=== PATIENT | male | born 1950 | race Caucasian/White ===

== ENCOUNTER 2021-01-17 20:10 | Emergency (ER) | payer MEDICARE, SELFPAY ==
--- NOTE | ~2021-01-17 | XR_ITS ---
EXAMINATION: XR chest 1V portable DATE: 01/17/2021 20:39 INDICATION: Left-sided anterior chest pain with shortness of breath TECHNIQUE: frontal view of the chest was obtained. COMPARISON: None FINDINGS: Reticular pattern at the bilateral lung. No pleural effusion or pneumothorax. The cardiomediastinal s ilhouette is normal. 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 IMPRESSION: 1. Increased reticular pattern at the bilateral lung bases which could represent mild pulmonary edema , atelectasis or less likely pneumonia. Reviewed, dictated and finalized at location A. IMPRESSION: 1. Increased reticular pattern at the bilateral lung bases which could represen t mild pulmonary edema, atelectasis or less likely pneumonia.
--- NOTE | 2021-01-17 20:18 | ECG_ITS ---
Measurements Intervals [place] Rate: 109 P: 54 MO: 157 QRS: -33 QRSD: 147 T: 104 QT: 364 QTc: 491 Interpretive Statements SINUS TACHYCARDIA VENTRICULAR PREMATURE COMPLEX POSSIBLE LEFT ATRIAL ENLARGEMENT LEFT AXIS DEVIATION LEFT BUNDLE BRANCH BLOCK ABNORMAL ECG Electronically Signed On 01-17-2021 21:19:19 CDT by Vito Ivory D.O.
[2021-01-17] MEDS: NITROGLYCERIN SL 0.4 MG TABLET SUBLINGUAL (20:20)
[2021-01-17 20:26] VITALS: BP 130/90; PULSE 94; RESP 18; TEMP 36.6; O2SAT 98
--- NOTE | 2021-01-17 20:45 | ED.GENADULT ---
HPI - General Adult General Chief complaint: Chest Pain Stated complaint: chest pain, trouble breathing Source: patient Mode of arrival: ambulatory Limitations: no limitations History of Present Illness HPI narrative: Matthieu is a 71M with a PMH of CAD s/p multiple stents and DMII that presented to the ED with chest pain. It started a few days ago. It is a 8/10 pressure in his left chest that shoots down his left arm. It is associated with SOB and lightheadedness but no syncope. He has had a little nausea but no vomiting. It is worse with eating. It is not affected by activity. No fevers, chills or cough. Related Data Home Medications Medication Instructions Recorded Confirmed aspirin [Adult Low Dose Aspirin] 81 mg PO DAILY 01/17/21 01/17/21 Allergies Allergy/AdvReac Type Severity Reaction Status Date / Time gabapentin AdvReac Hives Verified 01/17/21 23:20 Review of Systems Constitutional: Constitutional: Reports no additional constitutional complaints Eyes: Eyes: Reports no additional eye complaints ENT: Reports system reviewed and no additional complaints, except as documented Cardiovascular: Cardiovascular: Reports as per HPI Respiratory: Respiratory: Reports as per HPI Gastrointestinal: Gastrointestinal: Reports as per HPI Genitourinary: Genitourinary: Reports no additional male genitourinary complaints Musculoskeletal: Musculoskeletal: Reports no additional musculoskeletal complaints Integumentary/Breasts: Skin/Breast: Reports system reviewed and no additional complaints, except as docu Neurologic: Reports system reviewed and no additional complaints, except as documented Psychiatric: Psychiatric: Reports no additional psychiatric complaints Endocrine: Endocrine: Reports no additional endocrine complaints Hematologic/Lymphatic: Hematologic/Lymphatic: Reports no additional hematologic/lymphatic complaints Allergic/Immunologic: Allergic/Immunologic: Reports no additional allergic/immunologic complaints [facility] Social History Social History Gender identity (if verbalized by the patient): Male Exam Const: General: alert; No confusion Orientation/consciousness: patient oriented x3 Limitations: altered mental status Other: Mild distress. HENMT: Head: normal to inspection Other: atraumatic Eyes: Conjunctivae: conjunctivae normal Pupils: Equal, round and reactive pupils present Neck: Neck: normal visual inspection Chest: Chest palpation & inspection: normal inspection of the chest Resp: Effort & Inspection: normal respiratory effort, not labored, no retractions and not tachypneic Auscultation: clear to auscultation bilaterally Cardio: Rate: regular rate Rhythm: regular rhythm Heart sounds: no murmurs GI: Inspection: non-distended GI Palp: Yes Soft to palpation, No Tenderness to palpation present (GI), No Guarding due to palpation present (GI) and No Rigid due to palpation : General: Yes no CVA tenderness Skin: General skin exam: normal color Rashes: no rashes Neuro: General: patient oriented x3, moves all extremities, no meningeal signs, no focal motor deficits and CN's II-XI intact bilaterally Extrem: General: normal to inspection Psych: Appearance: grossly normal Mental Status: mental status grossly normal Course Course Emergency Course: Ordered labs, CXR, EKG, aspirin and nitro. Nitro brought the pain from an 8 to a 5 or 6. He was given multiple doses of nitro and later a zofran as he vomited. \ Later his labs came back with a troponin of 5434. A heparin drip and nitro drip were started. [phone]. The hospitalist then said he would talk to cardiology. They later called back at 2233 and said that this is a new LBBB and to treat like a stemi and go to the nearest cathode maker. Next [place] was contacted at [phone] who accepted the patient as a STEMI. He was later flown out for PCI A
[2021-01-17 20:57] LABS: Basophils Absolute Auto 0.03 K/mm3 (0.00-0.10); Basophils Percent Auto 0.3 % (0.0-1.0); Eosinophils Absolute Auto 0.08 K/mm3 (0.02-0.50); Eosinophils Percent Auto 0.8 % (1.0-6.0); Hematocrit 47.7 % (37.0-46.0); Hemoglobin 15.9 g/dL (12.4-15.3); Immature Granulocyte Absolute 0.04 K/mm3 (0.00-0.00); Immature Granulocyte Percent A 0.4 % (0.0-0.0); Lymphocytes Absolute Auto 1.69 K/mm3 (1.10-4.50); Lymphocytes Percent Auto 17.8 % (18.0-42.0); Mean Corpuscular HGB Conc 33.3 g/dL (32.0-36.0); Mean Corpuscular Hemoglobin 29.3 pg (27.0-31.0); Mean Platelet Volume 10.4 fl (8.7-11.0); Monocytes Absolute Auto 0.66 K/mm3 (0.10-0.90); Neutrophils Percent Auto 73.7 % (50.0-70.0); Platelet Count Result 278 K/mm3 (150-420); Red Blood Count 5.42 M/mm3 (4.70-6.10); Red Cell Distribution Width 12.8 % (11.6-14.4); White Blood Count 9.5 K/mm3 (4.8-10.8)
[2021-01-17] MEDS: ASPIRIN 81 MG CHEWABLE TABLET 324 MG PO (21:04)
[2021-01-17 21:12] LABS: INR 1.1; Partial Thromboplastin Time 29.2 SEC (23.90-30.70); Prothrombin Time 11.4 Seconds (9.50-12.10)
[2021-01-17] MEDS: MORPHINE SULFATE (*CRX) 4 MG/ML INJ IV PUSH (21:16)
[2021-01-17 21:19] LABS: Alanine Aminotransferase 28 U/L (16-63); Albumin Level 3.5 g/dL (3.4-5.0); Alkaline Phosphatase 111 U/L (46-116); Anion Gap 17 mmol/L (8-16); Aspartate Amino Transferase 47 U/L (15-37); Bilirubin,Total 1.3 mg/dL (0.00-1.00); Blood Urea Nitrogen 25 mg/dL (7-18); Calcium 9.4 mg/dL (8.5-10.1); Carbon Dioxide 22 mmol/L (21-32); Chloride 99 mmol/L (98-108); Estimated CRCL calculation 39 ml/min; Estimated Glomerular Filt Rate 41; Glucose 374 mg/dL (70-99); Lipase 46 U/L (73-393); NT Pro B Type Natriuretic Pept 6243 pg/mL (0-125); Osmolality Calculated 305 mOsm/kg (285-295); Potassium 4.1 mmol/L (3.5-5.1); Sodium 138 mmol/L (136-145); Total Protein 7.4 g/dL (6.4-8.2)
[2021-01-17 21:57] VITALS: BP 124/88; PULSE 102
[2021-01-17] MEDS: NITROGLYCERIN/D5W 200 MCG/ML 50 MG/250 ML BTL IV CONT (21:57)
[2021-01-17] MEDS: HEPARIN SODIUM 5,000 UNITS/ML VIAL 4000 UNITS IV PUSH (21:57)
[2021-01-17] MEDS: HEPARIN SOD/D5W 100 UNITS/ML 25,000 UNITS/250 ML BAG 9 UNITS IV CONT (21:58)
[2021-01-17] MEDS: ONDANSETRON INJ 4 MG/2 ML VIAL IV PUSH (22:03)
[2021-01-17] MEDS: LORazepam INJ (*CRX) 2 MG/ML VIAL 1 MG IV PUSH (22:03)
[2021-01-17 22:09] LABS: SARS-CoV-2 Ag Negative (Negative)
--- NOTE | 2021-01-17 23:12 | PC.NURSE ---
2234 MD at [facility] states this is a STEMI compared to EKG there, request to go where can do emergency PCI. 2235 Patient req [facility] 2236 CALLED STAT heart
[2021-01-17 23:31] VITALS: BP 122/82; PULSE 92; RESP 20; TEMP 37; O2SAT 98
== END 2021-01-17 23:08 | disposition short-term general hospital (02) ==
LOC: CHSED 20:14
PROVIDERS: Emergency Provider Family Medicine
DX: I24.9 Acute ischemic heart disease, unspecified (principal); R06.02 Shortness of breath; Z20.822 Contact with and (suspected) exposure to COVID-19
CPT/HCPCS: 36415; 71045; 80053; 83690; 83880; 84484; 85025; 85610; 85730; 87426; 93005; 96365; 96366; 96368; 96375; 99285; A9270; C9803; J1644; J2060; J2270; J2405

== ENCOUNTER 2021-01-22 21:57 | Observation (INO) | payer MEDICARE, OTHER, SELFPAY ==
--- NOTE | ~2021-01-22 | CT_ITS ---
EXAMINATION: CTA chest PE protocol EXAM DATE: 01/23/2021 00:01 INDICATION: Shortness of breath, elevated d-dimer. Chest pain. TECHNIQUE: Spiral CTA of the chest (pulmonary arteries) was performed with 100 cc Omnipaque 350 intr avenous contrast injection. Images were acquired during the pulmonary arterial phase. Coronal maxi mum intensity projection 3D-reconstructions were created by the technologist on dedicated workstation . Axial, coronal and sagittal reformatted images were reviewed. The dose-length product (DLP) for t his examination was 593.04 mGy-cm. The exposure was tailored according to patient size (auto mA exp osure control), and iterative reconstruction (ASIR) was used as additional dose reduction technique. There is no prior study for comparison. FINDINGS: Pulmonary arteries are well opacified and without intraluminal filling defects. No thora cic aortic dissection. There are small to moderate bilateral pleural effusions. There is adjacent sub segmental atelectasis. There are small to moderate amount of scattered groundglass opacities, likely acute edema or infection. Please clinically correlate. Tracheobronchial tree is patent. There is no mediastinal, hilar or axillary lymphadenopathy. There is no pneumothorax. Heart normal in size. There are dense coronary arteries, could be severe coronary arterial sclerosis and/or coronary vick ry stent(s), which are difficult to distinguish due to cardiac motion on this non-gated exam. Correla te with cardiac history and consider cardiology consult if not recently evaluated. Upper abdomen is unremarkable. There is thoracic spondylosis without osteoblastic or osteolytic lesions identified. IMPRESSION: 1. Small to moderate amount of bilateral edema or infection. 2. Small to moderate bilateral pleural effusions, adjacent subsegmental atelectasis. 3. No pulmonary emboli. Reviewed, dictated and finalized at location G. IMPRESSION: 1. Small to moderate amount of bilateral edema or infection. 2. Small to moderate bilateral pleural effusions, adjacent subsegmental atelec tasis. 3. No pulmonary emboli.
--- NOTE | ~2021-01-22 | XR_ITS ---
EXAMINATION: XR chest 1V portable EXAM DATE: 01/22/2021 22:20 INDICATION: Chest pain @ center of chest w/ SOB/wheezing x 3days. TECHNIQUE: Portable AP frontal chest x-ray was obtained. Comparison is made to prior examination from 01/17/2021. FINDINGS: There is been some interval increase in amount of abnormal reticulation compared to 5 days ago, probably progression of pulmonary edema. Also, development of small pleural effusions. No pneumo thorax. Cardiac silhouette is stable in size compared to prior exam. No confluent consolidation. Ther e are bony degenerative changes. IMPRESSION: Progression of abnormal reticulation probably pulmonary edema, and of development small p leural effusion. Consider CHF exacerbation. Reviewed, dictated and finalized at location A. IMPRESSION: Progression of abnormal reticulation probably pulmonary edema, and of development small pleural effusion. Consider CHF exacerbation.
--- NOTE | 2021-01-22 22:03 | ECG_ITS ---
Measurements Intervals [place] Rate: 98 P: 36 IN: 148 QRS: -2 QRSD: 152 T: 102 QT: 353 QTc: 453 Interpretive Statements SINUS RHYTHM LEFT ATRIAL ENLARGEMENT LEFT BUNDLE BRANCH BLOCK ABNORMAL ECG Electronically Signed On 01-23-2021 6:44:14 CDT by Vito Ivory D.O.
[2021-01-22 22:10] VITALS: BP 132/80; PULSE 99; RESP 22; TEMP 36.8; O2SAT 95
--- NOTE | 2021-01-22 22:17 | ED.GENADULT ---
HPI - General Adult General Chief complaint: Chest Pain Stated complaint: chest pain and arm Time Seen by Provider: 01/22/21 22:18 History of Present Illness HPI narrative: 71-year-old male patient is here with chief complaints of chest pain that started sometime around 5:00 a.m. this afternoon. The patient localizes the pain to the mid sternal area and states that it is radiating down his left arm and elbow. Patient also states that he has been experiencing shortness of breath since last Friday and it gets exacerbated with exertion and lying down. The patient apparently was seen here in the ER last Friday and was diagnosed with acute IN and sent to [facility]. The patient states that they put 3 stents in and he was discharged on Friday. The patient has not filled his prescriptions and has not taken any medications after his discharge from the hospital. Patient states that he has been unable to get hold of [facility] and get his medications delivered to him. He does not know what medications he was supposed to be on. He has however continue her aspirin 81 mg daily. He denies any recent cough. He denies any COVID exposure. He denies any neck or jaw pain. Patient denies any diaphoresis or dizziness or passing-out spells. He denies any swelling in his legs. Patient states that he chews tobacco. He also states that he has been feeling a little weak. Patient states that he has been losing some weight over the last 1 year and does not seem to be too worried about it. He denies any nausea vomiting or diarrhea. Related Data Home Medications Medication Instructions Recorded Confirmed aspirin [Adult Low Dose Aspirin] 81 mg PO DAILY 01/17/21 01/22/21 Allergies Allergy/AdvReac Type Severity Reaction Status Date / Time gabapentin AdvReac Hives Verified 01/17/21 23:20 Review of Systems Review of Systems: All systems reviewed & are unremarkable except as noted in HPI and below Constitutional: Constitutional: Reports as per HPI and Reports no additional constitutional complaints Eyes: Eyes: Reports no additional eye complaints ENT: Reports system reviewed and no additional complaints, except as documented Cardiovascular: Cardiovascular: Reports as per HPI, Reports chest pain, Reports chest pain at rest, Reports chest pain with activity, Denies pedal edema, Denies edema, Denies irregular heart rhythm, Denies claudication, Denies leg ulcers, Denies leg edema, Denies lightheadedness, Reports dyspnea on exertion and Reports orthopnea Respiratory: Respiratory: Reports as per HPI and Reports no additional respiratory complaints Gastrointestinal: Gastrointestinal: Reports as per HPI and Reports no additional gastrointestinal complaints Genitourinary: Genitourinary: Reports no additional male genitourinary complaints Musculoskeletal: Musculoskeletal: Reports no additional musculoskeletal complaints Neurologic: Reports system reviewed and no additional complaints, except as documented Psychiatric: Psychiatric: Reports no additional psychiatric complaints and Reports anxiety Endocrine: Endocrine: Reports no additional endocrine complaints Hematologic/Lymphatic: Hematologic/Lymphatic: Reports no additional hematologic/lymphatic complaints Allergic/Immunologic: Allergic/Immunologic: Reports no additional allergic/immunologic complaints PMF Past Medical History Medical History (Updated 01/23/21 @ 00:32 by Lynn Caro MD) CAD (coronary artery disease) Diabetes mellitus Myocardial infarction Surgical History Surgical History (Updated 01/22/21 @ 23:25 by Lynn Caro MD) History of coronary artery stent placement Social History Social History (Updated 01/22/21 @ 23:27 by Lynn Caro MD) Smokeless tobacco user: chewing tobacco Gender identity (if verbalized by the patient): Male Exam Const: General: cooperative, comfortable, no acute distress, well developed, alert, awake, Physically a
[2021-01-22 22:19] LABS: Basophils Absolute Auto 0.04 K/mm3 (0.00-0.10); Basophils Percent Auto 0.5 % (0.0-1.0); Eosinophils Percent Auto 2.5 % (1.0-6.0); Hematocrit 45.9 % (37.0-46.0); Immature Granulocyte Absolute 0.02 K/mm3 (0.00-0.00); Immature Granulocyte Percent A 0.2 % (0.0-0.0); Lymphocytes Absolute Auto 1.93 K/mm3 (1.10-4.50); Mean Corpuscular HGB Conc 32.7 g/dL (32.0-36.0); Mean Corpuscular Hemoglobin 28.9 pg (27.0-31.0); Mean Corpuscular Volume 88.4 fL (78.0-102.0); Monocytes Absolute Auto 0.69 K/mm3 (0.10-0.90); Monocytes Percent Auto 8.6 % (2.0-11.0); Neutrophils Absolute Auto 5.2 K/mm3 (1.7-7.2); Neutrophils Percent Auto 64.2 % (50.0-70.0); Platelet Count Result 344 K/mm3 (150-420); Red Blood Count 5.19 M/mm3 (4.70-6.10); Red Cell Distribution Width 12.7 % (11.6-14.4)
[2021-01-22] MEDS: ASPIRIN 81 MG CHEWABLE TABLET 324 MG PO (22:20)
[2021-01-22] MEDS: NITROGLYCERIN OINTMENT 1 INCH DOSE (22:32)
[2021-01-22 22:39] LABS: INR 1.1; Partial Thromboplastin Time 29.4 SEC (23.90-30.70); Prothrombin Time 11.6 Seconds (9.50-12.10)
[2021-01-22 22:43] LABS: Alanine Aminotransferase 23 U/L (16-63); Albumin Level 2.9 g/dL (3.4-5.0); Alkaline Phosphatase 100 U/L (46-116); Anion Gap 15 mmol/L (8-16); Aspartate Amino Transferase 19 U/L (15-37); Blood Urea Nitrogen 19 mg/dL (7-18); Carbon Dioxide 22 mmol/L (21-32); Chloride 101 mmol/L (98-108); Estimated Glomerular Filt Rate 51; Glucose 399 mg/dL (70-99); Lipase 86 U/L (73-393); NT Pro B Type Natriuretic Pept 11236 pg/mL (0-125); Osmolality Calculated 305 mOsm/kg (285-295); Potassium 4.3 mmol/L (3.5-5.1); Sodium 138 mmol/L (136-145); Total Protein 7.1 g/dL (6.4-8.2)
--- NOTE | 2021-01-22 22:48 | PC.NURSE ---
Called for records from [facility] from [facility]
[2021-01-22 22:55] VITALS: BP 132/92; PULSE 102; RESP 22; O2SAT 96
[2021-01-22] MEDS: FUROSEMIDE INJ 40 MG/4 ML VIAL IV PUSH (23:17)
[2021-01-22] MEDS: MORPHINE SULFATE (*CRX) 2 MG/ML INJ IV PUSH (23:17)
[2021-01-22] MEDS: ONDANSETRON INJ 4 MG/2 ML VIAL IV PUSH (23:18)
[2021-01-22 23:32] LABS: Acetone Small (Negative)
[2021-01-22 23:36] LABS: D Dimer 0.82 mg/L (0.19-0.50)
[2021-01-22] MEDS: INSULIN HUMAN REGULAR (*BKC) 100 UNITS/ML 10 UNITS SUB-Q (23:49)
[2021-01-22 23:57] LABS: PO2 VBG 20.6 mmHg (35.0-45.0); pH VBG 7.43 (7.33-7.43)
[2021-01-22 23:59] LABS: PCO2 VBG 29.1 mmHg (42.0-48.0)
[2021-01-23 00:10] LABS: Device ROOM AIR
[2021-01-23 00:26] VITALS: BP 120/94; PULSE 108; RESP 20; TEMP 36.3; O2SAT 96
[2021-01-23 00:44] LABS: Glucose Point of Care 364 mg/dl (65-105)
--- NOTE | 2021-01-23 01:32 | PC.NURSE ---
Patient admitted to room 5 per w/c from the ER for observation. Is alert and oriented x 3, oriented to room and call light, is pleasant and cooperative.
[2021-01-23 01:51] VITALS: BMI 22.9
[2021-01-23 01:53] VITALS: BMI 22.9
[2021-01-23] MEDS: MORPHINE SULFATE (*CRX) 2 MG/ML INJ IV PUSH ×4 (02:03→12:02)
[2021-01-23] MEDS: ACETAMINOPHEN 325 MG TABLET 650 MG PO ×2 (03:39→07:58)
[2021-01-23 03:45] VITALS: BP 116/91; PULSE 103; RESP 18; TEMP 36.2; O2SAT 95
[2021-01-23 04:00] VITALS: PULSE 99
[2021-01-23 05:51] LABS: Add Urine Microscopic? YES; Appearance Urine Clear (Clear); Bilirubin Urine Negative (Negative); Blood Urine Negative (Negative); Color Urine Yellow (Yellow); Glucose Urine UA 3+ (Negative); Ketones Urine Negative (Negative); Leukocyte Esterase Ur Negative LEU/UL (Negative); Nitrate Urine Negative (Negative); Protein Urine Negative (Negative); Specific Grav Ur <= 1.005 (1.010-1.020); Urobilinogen Urine 0.2 mg/dL (0.2-1.0)
[2021-01-23 05:53] LABS: Bacteria Urine None seen /hpf; RBC Urine None seen /hpf (0-2); Squamous Epithelial Cell Urine Rare /hpf (Few); WBC Urine None seen /hpf (0-3)
[2021-01-23 05:57] LABS: Basophils Absolute Auto 0.02 K/mm3 (0.00-0.10); Basophils Percent Auto 0.2 % (0.0-1.0); Eosinophils Absolute Auto 0.02 K/mm3 (0.02-0.50); Eosinophils Percent Auto 0.2 % (1.0-6.0); Hematocrit 45.5 % (37.0-46.0); Hemoglobin 15.1 g/dL (12.4-15.3); Immature Granulocyte Absolute 0.03 K/mm3 (0.00-0.00); Immature Granulocyte Percent A 0.4 % (0.0-0.0); Lymphocytes Absolute Auto 1.27 K/mm3 (1.10-4.50); Lymphocytes Percent Auto 15.7 % (18.0-42.0); Mean Corpuscular HGB Conc 33.2 g/dL (32.0-36.0); Mean Corpuscular Hemoglobin 29.3 pg (27.0-31.0); Mean Corpuscular Volume 88.3 fL (78.0-102.0); Mean Platelet Volume 10.2 fl (8.7-11.0); Monocytes Absolute Auto 0.72 K/mm3 (0.10-0.90); Monocytes Percent Auto 8.9 % (2.0-11.0); Neutrophils Percent Auto 74.6 % (50.0-70.0); Platelet Count Result 324 K/mm3 (150-420); Red Blood Count 5.15 M/mm3 (4.70-6.10); Red Cell Distribution Width 12.7 % (11.6-14.4); White Blood Count 8.1 K/mm3 (4.8-10.8)
[2021-01-23 06:02] LABS: Alanine Aminotransferase 27 U/L (16-63); Albumin Level 2.8 g/dL (3.4-5.0); Alkaline Phosphatase 96 U/L (46-116); Anion Gap 13 mmol/L (8-16); Aspartate Amino Transferase 88 U/L (15-37); Bilirubin,Total 0.9 mg/dL (0.00-1.00); Blood Urea Nitrogen 23 mg/dL (7-18); Calcium 8.7 mg/dL (8.5-10.1); Carbon Dioxide 21 mmol/L (21-32); Chloride 100 mmol/L (98-108); Estimated CRCL calculation 47 ml/min; Estimated Glomerular Filt Rate 48; Glucose 378 mg/dL (70-99); Magnesium 2.3 mg/dL (1.8-2.4); Osmolality Calculated 297 mOsm/kg (285-295); Phosphorus 3.7 mg/dL (2.6-4.7); Potassium 4.8 mmol/L (3.5-5.1); Sodium 134 mmol/L (136-145); Total Protein 6.5 g/dL (6.4-8.2)
[2021-01-23 07:39] VITALS: BP 118/90; PULSE 93; RESP 20; TEMP 35.9; O2SAT 93
[2021-01-23 07:41] LABS: NT Pro B Type Natriuretic Pept 11236 pg/mL (0-125)
--- NOTE | 2021-01-23 07:57 | PC.NURSE ---
critical result was given in error, lab is re running the new tube for corrected result
[2021-01-23] MEDS: INSULIN HUMAN REGULAR (*BKC) 100 UNITS/ML SUB-Q ×2 (08:02→11:43)
[2021-01-23] MEDS: ENOXAPARIN 40 MG/0.4 ML SYRINGE SUB-Q (08:02)
--- NOTE | 2021-01-23 08:05 | PC.NURSE ---
pt resting in bed given medication for pain in left chest rating 5/10, labs re-drawn to verify previous result
[2021-01-23 08:30] LABS: Troponin I > 25000.0 ng/L (0.00-60.4)
--- NOTE | 2021-01-23 09:18 | PC.NURSE ---
[employer] at bedside, pt now reports pain 2/10 in chest, order received to hold nitro at this time
[2021-01-23 09:40] LABS: Troponin I > 25000.0 ng/L (0.00-60.4)
[2021-01-23 09:55] LABS: SARS-CoV-2 RNA PCR Negative (Negative)
--- NOTE | 2021-01-23 10:05 | PC.NURSE ---
pt sleeping, no evidence of distress noted at this tie
--- NOTE | 2021-01-23 10:07 | PC.NURSE ---
[facility] call contacted by hospitalist for possible transfer, faxed results to radha márquez as instructed as well, unsure if [facility] has beds available for acute cardiac patient
[2021-01-23 10:17] LABS: Glucose Point of Care 325 mg/dl (65-105)
--- NOTE | 2021-01-23 10:46 | PC.NURSE ---
[facility] returned call to [facility] and will have a hospitalist call
[2021-01-23 11:05] VITALS: PULSE 86
--- NOTE | 2021-01-23 11:05 | PC.NURSE ---
[facility] hospitalist returned call and pt accepted at [facility]
--- NOTE | 2021-01-23 11:11 | PM.SD2 ---
Same Day Admit/Disch: HPI History of Present Illness Chief complaint: Chest Pain <LEIGHANN Parra - Last Filed: 01/23/21 12:02> Narrative: Matthieu Arceo is a 71 year old male who comes in for Chest Pain radiating to the left arm. Pt states pain is sharp both in the left sternum and palm of left hand at a pain of 5-6/10. After giving Morphine pain in chest is now a 2-3/10 and 5/10 left palm. Pt was seen at this facility on 01/17/2021 and was transferred to [facility] where he had 3 stents placed. He was discharged and then came back to this facility yesterday c/o chest pain. Pt states that he was having a difficult time getting his medications that were prescribed for him by [facility] staff. Serial Trop were elevated with this AM draw of >[id number]. Pt also had BNP > 15532 and glucose at 399 with small amount of Acetone for which he was placed on a SSI regimen. Pt denies SOB, abdominal pain, N/V, changes in vision or hearing. Pt does admit to dizziness with standing and at times while laying down. <LEIGHANN Parra - Last Filed: 01/23/21 12:02> [facility] Past Medical History Medical History: Medical History CAD (coronary artery disease) Diabetes mellitus Myocardial infarction <LEIGHANN Parra - Last Filed: 01/23/21 12:02> Surgical History Surgical History: Surgical History History of coronary artery stent placement <LEIGHANN Parra - Last Filed: 01/23/21 12:02> Social History Social History: Social History Smoking status: Unknown if ever smoked Smokeless tobacco user: chewing tobacco Second hand tobacco smoke exposure: No Alcohol intake: former Substance use: never Gender identity (if verbalized by the patient): Male Sexual Orientation (if Verbalized by the Patient): Straight or Heterosexual Spiritual care concerns: No <LEIGHANN Parra - Last Filed: 01/23/21 12:02> Same Day Admit/Disch: Med Pre-admit Medications Home Medications: Home Medications Medication Instructions Recorded Confirmed Type aspirin 81 mg PO DAILY 01/17/21 01/22/21 History atorvastatin 40 mg PO DAILY #30 tablet 01/23/21 Rx clopidogrel 75 mg PO QAM #30 tablet 01/23/21 Rx lisinopril 10 mg PO DAILY #30 tablet 01/23/21 Rx <LEIGHANN Parra - Last Filed: 01/23/21 12:02> Exam Const: General: cooperative, comfortable, no acute distress, alert and awake <LEIGHANN Parra - Last Filed: 01/23/21 12:02> Nutritional Appearance: average body habitus <LEIGHANN Parra - Last Filed: 01/23/21 12:02> HENMT: Head: normal to inspection and normocephalic <LEIGHANN Parra - Last Filed: 01/23/21 12:02> Ears: hearing grossly normal bilaterally <LEIGHANN Parra - Last Filed: 01/23/21 12:02> Neck: Neck: normal visual inspection, full ROM and no JVD <LEIGHANN Parra - Last Filed: 01/23/21 12:02> Chest: Chest palpation & inspection: normal inspection of the chest <LEIGHANN Parra - Last Filed: 01/23/21 12:02> Resp: Effort & Inspection: normal respiratory effort <JOSE ParraC - Last Filed: 01/23/21 12:02> Auscultation: clear to auscultation bilaterally <LEIGHANN Parra - Last Filed: 01/23/21 12:02> Cardio: Jugular venous distension: no JVD <LEIGHANN Parra - Last Filed: 01/23/21 12:02> Rate: regular rate <LEIGHANN Parra - Last Filed: 01/23/21 12:02> Rhythm: regular rhythm <LEIGHANN Parra - Last Filed: 01/23/21 12:02> Heart sounds: S1 normal heart sound present and S2 normal heart sound present <LEIGHANN Parra - Last Filed: 01/23/21 12:02> GI: GI Palp: Yes Soft to palpation and No Tenderness to palpation present (GI) <LEIGHANN Parra - Last Filed: 01/23/21 12:02> Auscultation: normal bowel sounds <Neeraj Lester
[2021-01-23 11:32] VITALS: BP 120/88; PULSE 88; RESP 18; TEMP 35.9; O2SAT 92
[2021-01-23 11:33] LABS: Glucose Point of Care 276 mg/dl (65-105)
[2021-01-23] MEDS: CLOPIDOGREL BISULFATE 75 MG TABLET PO (11:43)
--- NOTE | 2021-01-23 12:40 | PC.NURSE ---
Nidhi POLK from [facility] called and bed # received, report given, call for ambulance transport
--- NOTE | 2021-01-23 12:47 | PC.NURSE ---
[facility] no ALS unit, [facility] paged for transferred
--- NOTE | 2021-01-23 13:20 | PC.NURSE ---
pt transferred to [facility] stretcher in stable condition, [facility] hooked pt up to their monitors and have taken over care of pt
== END 2021-01-23 13:20 | disposition short-term general hospital (02) ==
LOC: CHSED 22:00 → CHS2ND 01-23 00:32
PROVIDERS: Nurse Practitioner Family; Admitting Provider Emergency Medicine; Emergency Provider Emergency Medicine; Visit Provider Emergency Medicine
DX: R07.9 Chest pain, unspecified (principal); I50.9 Heart failure, unspecified; I21.9 Acute myocardial infarction, unspecified; I25.10 Atherosclerotic heart disease of native coronary artery without angina pectoris; E11.10 Type 2 diabetes mellitus with ketoacidosis without coma; Z20.822 Contact with and (suspected) exposure to COVID-19; Z95.5 Presence of coronary angioplasty implant and graft
CPT/HCPCS: 36415; 71045; 71275; 80053; 81001; 82010; 82803; 82948; 83690; 83735; 83880; 84100; 84484; 85025; 85380; 85610; 85730; 93005; 96372; 96374; 96375; 96376; 99285; A9270; C9803; G0378; J1650; J1815; J1940; J2270; J2405; Q9967; U0003; U0005